=== PATIENT | male | born 1965 | race African-American/Black ===

== ENCOUNTER 2022-04-12 17:10 | Emergency (ER) | payer BC ==
[~2022-04-12] VITALS: Ht 177.8 cm; Wt 85.0 kg
[2022-04-12] MEDS ORDERED: ONDANSETRON HCL 4MG/2ML INJ IV STA (18:28)
[2022-04-12] MEDS ORDERED: SODIUM CHLORIDE 0.9% 1,000 ML IV ONE (18:30)
[2022-04-12 18:48] LABS: EOSINOPHILS % 0.9 % (0.0-5.0); HEMATOCRIT. 38.3 % (42.0-52.0); LYMPHOCYTES % 46.8 % (20.0-50.0); MEAN CORPUSCULAR HEMOGLOBIN 33.6 pg (28.0-32.0); MEAN CORPUSCULAR VOLUME 98.9 fL (80.0-94.0); MEAN PLATELET VOLUME 8.5 fl (7.4-10.4); MONOCYTES % 10.1 % (2.0-8.0); NEUTROPHILS % 41.2 % (40.0-76.0); PLATELET 226 x1000/uL (130-400); RED BLOOD CELL COUNT 3.87 mill/uL (4.7-6.1); RED CELL DISTRIBUTION WIDTH 14.3 % (11.6-14.6)
[2022-04-12 18:55] LABS: CHLORIDE 109 mEq/L (98-107)
[2022-04-12 19:55] VITALS: BP 132/86
== END 2022-04-12 20:19 | disposition home or self-care (01) ==
LOC: ER 17:10
DX: R55 Syncope and collapse (principal); I10 Essential (primary) hypertension; E07.9 Disorder of thyroid, unspecified; Z86.73 Personal history of transient ischemic attack (TIA), and cerebral infarction without residual deficits
CPT/HCPCS: 36415; 70450; 71045; 80053; 83880; 84484; 85025; 93005; 99285; J7030